=== PATIENT | female | born 1985 | race Caucasian/White ===

== ENCOUNTER 2025-03-18 13:42 | Emergency (ER) | payer OTHER ==
[~2025-03-18] VITALS: Ht 180.3 cm; Wt 68.0 kg
[2025-03-18 14:16] VITALS: BP 109/77; O2SAT 100
[2025-03-18 15:35] LABS: PLATELET COUNT (AUTO) 159 K/uL (179-408); RED BLOOD CELL COUNT(AUTO) 4.38 MIL/uL (3.63-4.92); RED CELL DISTRIBUTION WIDTH 12.7 % (12.3-17.7); WHITE BLOOD COUNT (AUTO) 7.0 K/uL (3.8-11.8)
[2025-03-18 15:42] LABS: CREATININE 0.6 mg/dL (0.6-1.3); SODIUM SERUM 142 mmol/L (136-145); UREA NITROGEN, BLOOD 11 mg/dL (7-18)
== END 2025-03-18 16:18 | disposition home or self-care (01) ==
LOC: ER 13:42
DX: K21.9 Gastro-esophageal reflux disease without esophagitis (principal); R07.2 Precordial pain
CPT/HCPCS: 36415; 71045; 84484; 85025; A4606; A4663